=== PATIENT | female | born 1990 | race Caucasian/White ===

== ENCOUNTER 2016-09-19 10:57 | Emergency (ER) | payer SELFPAY ==
[2016-09-19 11:05] VITALS: BP 130/85; BMI 24.0
--- NOTE | 2016-09-19 12:43 | DR.GENAD ---
HPI - PCP Primary Care Physician: NFD - Complaint/Symptoms Chief Complaint Doctors Comments: History as stated. Admits to pain with extension of right upper extremity (right) Chief Complaint:: Hurt collar bone. Was taking out trash and slung bag over her shoulder and she heard a pop - Source History Provided: Patient - Mode of Arrival Mode of Arrival: Ambulatory - Timing Onset of Chief Complaint: 09/19/16 PMH - PMH Past Medical History: No Past Medical History: Hypertension Past Surgical History: No - Family History History of Family Medical Conditions: Yes Family Medical History: Diabetes Mellitus, Hypertension - Social History Does patient currently use any type of tobacco product: Yes Have you used tobacco products in the last 12 months: Yes Type of Tobacco Use: Cigarettes How many years tobacco product used: 10 Does any household member use tobacco: Yes Alcohol Use: None Do you use any recreational Drugs:: No Lives With: Significant Other Lives Where: Home - infectious screening In the last 2 months have you had wt loss of >10#?: NO Have you had fever, night sweats or hemotysis?: No Have you traveled outside the country in the last 6 months?: No Isolation: Standard ROS - Review of Systems Eyes: No Symptoms Reported ENTM: No Symptoms Reported Respiratoy: No Symptoms Reported Cardiovascular: No Symptoms Reported Gastrointestinal/Abdominal: No Symptoms Reported Genitourinary: No Symptoms Reported Neurological: No Symptoms Reported Musculoskeletal: No Symptoms Reported Integumentary: No Symptoms Reported Hematologic/Lymphatic: No Symptoms Reported Endocrine: No Symptoms Reported Psychiatric: No Symptoms Reported All Other Systems: Reviewed and Negative PE - Vital Signs Vitals: Temperature 97.4 F Pulse Rate 94 Respiratory Rate 20 Blood Pressure 130/85 O2 Sat by Pulse Oximetry 100 - General Limitations: No Limitations General Appearance: Alert, In No Apparent Distress - Head Head Exam: Normal Inspection, Atraumatic - Eyes Eye exam: Normal Appearance, PERRL, EOMI - ENT ENT Exam: Normal Exam External Ear Exam: Normal External Inspection TM/Canal Exam: Bilateral Normal Nose Exam: Normal Nose Exam Mouth Exam: Normal Inspection Throat Exam: Normal Inspection - Neck Neck Exam: Normal Inspection - Chest Chest Inspection: Normal Inspection - Respiratory Respiratory Exam: Normal Lung Sounds Bilat Respiratory Exam: Bilateral Clear to Auscultation - Cardiovascular Cardiovascular Exam: Regular Rate, Normal Rhythm - Abdominal Exam Abdominal Exam: Normal Inspection Abdominal Tenderness: negative: RUQ, RLQ, LUQ, LLQ, Epigastrium, Suprapubic, Diffuse, Mild, Moderate, Severe, Other - Extremities Extremities Exam: Normal Inspection, Tenderness - Back Back Exam: Normal Inspection - Neurologic Neurological Exam: Alert, Oriented X3, CN II-XII Intact - Skin Skin Exam: Warm, Dry, Intact Course - Reevaluation 1st: Improved ( 3) ROR - XRAY XRAY Interpreted by: Radiologist (Shoulder: negative) - Diagnosis Discharge Problem: Sprain of shoulder, right Qualifiers: Encounter type: initial encounter Shoulder sprain type: unspecified sprain Qualified Code(s): S43.401A - Unspecified sprain of right shoulder joint, initial encounter - Discharge Plan Condition: Stable - Follow ups/Referrals Follow ups/Referrals: NFD,None [Primary Care Provider] - 3 days - Instructions
[2016-09-19] MEDS ORDERED: TORADOL 30 MG VIAL ONE (12:47)
[2016-09-19] MEDS: TORADOL 30 MG VIAL IM ONE (12:51)
--- NOTE | 2016-09-19 14:00 | RAD ---
HISTORY: Pain. Patient hurt collarbone. Patient was taking out trash slung bag over her shoulder and she heard a pop. Study: Three-view right shoulder Comparison: No priors Findings: The appearance of the clavicle and AC joint are unremarkable. The glenohumeral articulation is norm al in its appearance. No acute cortical disruption or dislocation can be identified. The visualize d portions of the scapula are unremarkable. In addition, the visualized portions of the left hemith orax appear normal. IMPRESSION: 1. Negative exam. Reported By:
== END 2016-09-19 14:15 | disposition home or self-care (01) ==
LOC: ER 11:08
DX: S43.401A Unspecified sprain of right shoulder joint, initial encounter (principal); Y33.XXXA Other specified events, undetermined intent, initial encounter
CPT/HCPCS: 73030; 80305; 96372; 99282; J1885

== ENCOUNTER 2017-02-09 23:58 | Emergency (ER) | payer OTHER ==
[2017-02-10 00:11] VITALS: BMI 28.3
[2017-02-10 00:44] LABS: APPEARANCE,URINE CLOUDY (CLEAR); COLOR,URINE PALE YELLOW (YELLOW)
[2017-02-10 00:45] LABS: BLOOD/HEMOGLOBIN,URINE 3+ (NEGATIVE); GLUCOSE, URINE NEGATIVE (NEGATIVE); KETONES,URINE NEGATIVE (NEGATIVE); NITRITES,URINE NEGATIVE (NEGATIVE); PROTEIN,URINE TRACE (NEGATIVE)
[2017-02-10 00:46] LABS: BACTERIA,URINE TRACE /HPF (NEGATIVE); BILIRUBIN,URINE NEGATIVE (NEGATIVE); LEUKOCYTE ESTERASE ,URINE NEGATIVE (NEGATIVE); SQUAMOUS EPITHELIAL CELL,UR FEW /HPF (NEGATIVE); UROBILINOGEN,URINE NORMAL (NORMAL)
[2017-02-10 00:48] LABS: BASOPHILS # (AUTO) 0.1 X10^3/uL (0.0-0.1); BASOPHILS % (AUTO) 0.6 % (0.2-1.0); EOSINOPHILS # (AUTO) 0.2 x10^3/uL (0.0-0.2); EOSINOPHILS % (AUTO) 1.4 % (0.9-2.9); HEMATOCRIT 34.6 % (36.0-47.0); LYMPHOCYTES # (AUTO) 2.9 X10^3/uL (1.3-2.9); LYMPHOCYTES % (AUTO) 26.2 % (21.0-51.0); MEAN CORPUSCULAR HEMOGLOBIN 31.1 pg (27.0-34.0); MEAN CORPUSCULAR HGB CONC 34.7 g/dL (33.0-35.0); MEAN CORPUSCULAR VOLUME 89.6 fL (80.0-100.0); MEAN PLATELET VOLUME 8.4 fL (7.4-11.0); MONOCYTES # (AUTO) 0.6 x10^3/uL (0.3-0.8); MONOCYTES % (AUTO) 5.5 % (0.0-13.0); NEUTROPHILS # (AUTO) 7.3 x10^3/uL (2.2-4.8); NEUTROPHILS % (AUTO) 66.3 % (42.0-75.0); PLATELET COUNT 279 X10^3/uL (150.0-450.0); RED BLOOD COUNT 3.86 X10^6/uL (3.5-5.4); RED CELL DISTRIBUTION WIDTH 12.4 % (11.6-16.5); WHITE BLOOD COUNT 10.9 X10^3/uL (3.6-10.0)
--- NOTE | 2017-02-10 01:29 | DR.GENAD ---
HPI - PCP Primary Care Physician: DARRELL - Complaint/Symptoms Chief Complaint Doctors Comments: Patient presents with complaint of vaginal bleeding and stomach pain she reports a history of being four months . Her LMP is around the middle of October. Chief Complaint:: VAGINAL BLEEDING - Source History Provided: Patient - Mode of Arrival Mode of Arrival: Ambulatory - Timing Onset of Chief Complaint: 02/10/17 PMH - PMH Past Medical History: Yes Past Medical History: Hypertension Past Surgical History: No - Family History History of Family Medical Conditions: Yes Family Medical History: Diabetes Mellitus, Hypertension - Social History Does patient currently use any type of tobacco product: Yes Have you used tobacco products in the last 12 months: Yes Type of Tobacco Use: Cigarettes Does any household member use tobacco: Yes Alcohol Use: None Do you use any recreational Drugs:: No Lives With: Family Lives Where: Home - infectious screening In the last 2 months have you had wt loss of >10#?: NO Have you had fever, night sweats or hemotysis?: No Have you traveled outside the country in the last 6 months?: No Isolation: Standard ROS - Review of Systems Constitutional: See HPI Eyes: No Symptoms Reported ENTM: No Symptoms Reported Respiratoy: No Symptoms Reported Cardiovascular: No Symptoms Reported Gastrointestinal/Abdominal: No Symptoms Reported Genitourinary: No Symptoms Reported Neurological: No Symptoms Reported Musculoskeletal: No Symptoms Reported Integumentary: No Symptoms Reported Hematologic/Lymphatic: No Symptoms Reported Endocrine: No Symptoms Reported Psychiatric: No Symptoms Reported All Other Systems: Reviewed and Negative PE - Vital Signs Vitals: Temperature 98.3 F Pulse Rate 116 Respiratory Rate 17 Blood Pressure 129/77 O2 Sat by Pulse Oximetry 99 - General General Appearance: Alert, In No Apparent Distress - Head Head Exam: Normal Inspection, Atraumatic - Eyes Eye exam: Normal Appearance, PERRL, EOMI - ENT ENT Exam: Normal Exam External Ear Exam: Normal External Inspection TM/Canal Exam: Bilateral Normal Nose Exam: Normal Nose Exam Mouth Exam: Normal Inspection Throat Exam: Normal Inspection - Neck Neck Exam: Normal Inspection, Full ROM - Chest Chest Inspection: Normal Inspection - Respiratory Respiratory Exam: Normal Lung Sounds Bilat Respiratory Exam: Bilateral Clear to Auscultation - Cardiovascular Cardiovascular Exam: Regular Rate, Normal Rhythm - Abdominal Exam Abdominal Exam: Normal Inspection Abdominal Tenderness: negative: RUQ, RLQ, LUQ, LLQ, Epigastrium, Suprapubic, Diffuse, Mild, Moderate, Severe, Other - Extremities Extremities Exam: Normal Inspection, Full ROM - Back Back Exam: Normal Inspection, Full ROM - Neurologic Neurological Exam: Alert, Oriented X3, CN II-XII Intact - Psychiatric Psychiatric Exam: Normal Affect - Skin Skin Exam: Warm, Dry, Intact ROR - Labs Reviewed Result Diagrams: 02/10/17 00:31 02/10/17 00:31 Laboratory: WBC 10.9 X10^3/uL (3.6-10.0) H 02/10/17 00:31 RBC 3.86 X10^6/uL (3.5-5.4) 02/10/17 00:31 Hgb 12.0 g/dL (12.0-16.0) 02/10/17 00:31 Hct 34.6 % (36.0-47.0) L 02/10/17 00:31 MCV 89.6 fL (80.0-100.0) 02/10/17 00: MCH 31.1 pg (27.0-34.0) 02/10/17 00: MCHC 34.7 g/dL (33.0-35.0) 02/10/17 00:31 RDW 12.4 % (11.6-16.5) 02/10/17 00:31 Plt Count 279 X10^3/uL (150.0-450.0) 02/10/17 00:31 MPV 8.4 fL (7.4-11.0) 02/10/17 00:31 Neut % 66.3 % (42.0-75.0) 02/10/17 00: Lymph % 26.2 % (21.0-51.0) 02/10/17 00:31 [place] % 5.5 % (0.0-13.0) 02/10/17 00:31 Eos % 1.4 % (0.9-2.9) 02/10/17 00:31 Baso % 0.6 % (0.2-1.0) 02/10/17 00:31 Neut # 7.3 x10^3/uL (2.2-4.8) H 02/10/17 00:31 Lymph # 2.9 X10^3/uL (1.3-2.9) 02/10/17 00:31 [place] # 0.6 x10^3/uL (0.3-0.8) 02/10/17 00:31 Eos # 0.2 x10^3/uL (0.0-0.2) 02/10/17 00:31 Baso # 0.1 X10^3/uL (0.0-0.1) 02/10/17 00:31 Absolute Nucleated RBC 0.1 /100WBC 02/10/17 00:31 Sodium 139 mmol/L (136-145) 02/10/17 00:31 Corrected Sodium TNP 02/10/17 00:31 Potassium 3.5 mmol/L (3.5-5.1) 02/10/17 00:31 Chloride 104 mmol/L (98-107) 02/10/17 00:31 Carbon Dioxide 26.1 mmol/L (21-32) 02/10/17 00:31 BUN 9 mg/dL (7-18) 02/10/17 00: Creatinine 0.60 mg/dL (0.55-1.02) 02/10/17 00:31 Est GFR (MDRD) Af Amer > 60 (>60) 02/10/17 00:31 Est GFR (MDRD) Non-Af > 60 (>60) 02/10/17 00:31 Glucose 94 mg/dL (65-99) 02/10/17 00:31 Calcium 8.3 mg/dL (8.5-10.1) L 02/10/17 00: HCG, Quant 74103 mIU/mL (0-6) H 02/10/17 00:31 Specimen Type Clean catch urine 02/10/17 00:15 Urine Color Pale yellow (YELLOW) 02/10/17 00:15 Urine Appearance Cloudy (CLEAR) 02/10/17 00:15 Urine pH 6.0 (5.0 - 8.0) 02/10/17 00:15 Ur Specific [place] 1.015 (1.000-1.030) 02/10/17 00: Urine Protein Trace (NEGATIVE) 02/10/17 00: Urine Glucose (UA) Negative (NEGATIVE) 02/10/17 00: Urine Ketones Negative (NEGATIVE) 02/10/17 00: Urine Occult Blood 3+ (NEGATIVE) 02/10/17 00:15 Urine Nitrite Negative (NEGATIVE) 02/10/17 00:15 Urine Bilirubin Negative (NEGATIVE) 02/10/17 00:15 Urine Urobilinogen Normal (NORMAL) 02/10/17 00:15 Ur Leukocyte Esterase Negative (NEGATIVE) 02/10/17 00:15 Urine RBC 2-6 /HPF (NEGATIVE) 02/10/17 00:15 Urine WBC 0-3 /HPF (NEGATIVE) 02/10/17 00:15 Ur Squamous Epith Cells Few /HPF (NEGATIVE) 02/10/17 00:15 Urine Bacteria Trace /HPF (NEGATIVE) 02/10/17 00:15 Ur Culture Indicated? No/not indicated 02/10/17 00:15 - XRAY XRAY Interpreted by: Radiologist (OB US:A viable single intrauterine is identified with heart tones of 139 beats per minute. [place] rump length is 9.51 cm. A cephalic presentation is observed with an anterior and fundal placenta. Fluid volume is grossly normal although JESSIKA was not obtained. Evaluation of the anatomy including the stomach, urinary bladder and four chamber heart is unremarkable..Impression: A viable single intrauterine with an average ultrasound age of 15 weeks, 5 days correspond to an estimated date of delivery of 07/30/2017 which is discrepant with the patient's reported LMP of . No anatomical abnormalities can be identified.) - Diagnosis Discharge Problem: 15 weeks 5 days Intrauterine normal Qualifiers: Trimester: first trimester Qualified Code(s): Z34.91 - Encounter for supervision of normal , unspecified, first trimester - Discharge Plan Condition: Stable - Follow ups/Referrals Follow ups/Referrals: Sin Dover [Primary Care Provider] - 3 days - Instructions
[2017-02-10 01:44] LABS: BLOOD UREA NITROGEN 9 mg/dL (7-18); CALCIUM 8.3 mg/dL (8.5-10.1); CARBON DIOXIDE 26.1 mmol/L (21-32); CHLORIDE 104 mmol/L (98-107); SODIUM 139 mmol/L (136-145); eGFR BLACK RACES > 60 (>60); eGFR NON BLACK RACES > 60 (>60)
--- NOTE | 2017-02-10 03:16 | US ---
HISTORY: patient, abdominal pain, vaginal spotting. No care. Reported LMP of 2016. Study: OB ultrasound greater than 14 weeks Comparison: None Technique: Multiple grayscale and color flow Doppler images of the pelvis were obtained with focused evaluation of the fetus. Findings: A viable single intrauterine is identified with heart tones of 139 beats per minute. [place]-rump length is 9.51 cm. A cephalic presentation is observed with an anterior and fundal placent a. Fluid volume is grossly normal, although JESSIKA was not obtained. Evaluation of the anatomy inc luding the stomach, urinary bladder, and four-chamber heart is unremarkable. Value Estimated Gestational Age BPD 3.25 cm 16 weeks, 1 day HC 11.3 cm 15 weeks, 3 days AC 9.93 cm 16 weeks, 0 days FL 1.91 cm 15 weeks, 5 days IMPRESSION: A viable single intrauterine with an average ultrasound age of 15 weeks, 5 days correspond to an estimated date of delivery of 07/30/2017, which is discrepant with the patient's reported LMP o f 06/20/2016. No anatomical abnormalities can be identified. Reported By:
[2017-02-10 03:52] VITALS: BP 113/78
== END 2017-02-10 03:50 | disposition home or self-care (01) ==
LOC: ER 23:58
DX: O20.8 Other hemorrhage in early pregnancy (principal); Z3A.15 15 weeks gestation of pregnancy; Z34.91 Encounter for supervision of normal pregnancy, unspecified, first trimester
CPT/HCPCS: 36415; 76815; 80048; 81001; 84702; 85025; 99282; 99284

== ENCOUNTER 2017-02-10 20:28 | Emergency (ER) | payer OTHER ==
[2017-02-10 20:34] VITALS: BP 122/59; BMI 28.3
[2017-02-10] MEDS ORDERED: NS 1000 ML 1,000 ML IV ONE (21:13)
--- NOTE | 2017-02-10 21:14 | DR.GENAD ---
HPI - PCP Primary Care Physician: malini - Complaint/Symptoms Chief Complaint Doctors Comments: A 26 female presenting with compalain of right flank pain coming across her right pelvic area. She denies dysuria, frequency or urgency. I understand that she was here last night with vaginal spotting. Her OB U/S was read as showing a viable IUP at about 15 weeks. She was to follow with her collections curator today but states she was asleep and by the time she awakened, it was too late to make that call. She is still spotting she states. Chief Complaint:: came last night and had ultra sound and tonight she is still spotting and bleeding has not called her ob doctor. 15 week ob - Nurses notes reviewed Nurses Notes Review: Yes - Source History Provided: Patient - Mode of Arrival Mode of Arrival: Ambulatory - Timing Onset of Chief Complaint: 02/09/17 PMH - PMH Past Medical History: Yes Past Medical History: Hypertension Past Surgical History: No - Family History History of Family Medical Conditions: Yes Family Medical History: Diabetes Mellitus, Hypertension - Social History Does patient currently use any type of tobacco product: Yes Have you used tobacco products in the last 12 months: Yes Type of Tobacco Use: Cigarettes How many years tobacco product used: 8 Does any household member use tobacco: Yes Alcohol Use: None Do you use any recreational Drugs:: No Lives With: Family Lives Where: Home - infectious screening In the last 2 months have you had wt loss of >10#?: NO Have you had fever, night sweats or hemotysis?: No Have you traveled outside the country in the last 6 months?: No Isolation: Standard ROS - Review of Systems Constitutional: No Symptoms Reported Eyes: No Symptoms Reported ENTM: No Symptoms Reported Respiratoy: No Symptoms Reported Cardiovascular: No Symptoms Reported Gastrointestinal/Abdominal: Other (right flank pain) Genitourinary: Other (vaginal spotting) Neurological: No Symptoms Reported Musculoskeletal: No Symptoms Reported Integumentary: No Symptoms Reported Hematologic/Lymphatic: No Symptoms Reported Endocrine: No Symptoms Reported Psychiatric: No Symptoms Reported All Other Systems: Reviewed and Negative PE - Vital Signs Vitals: Temperature 98.0 F Pulse Rate 109 Respiratory Rate 18 Blood Pressure [Left Arm] 113/78 Blood Pressure 122/59 O2 Sat by Pulse Oximetry 99 - General Limitations: No Limitations General Appearance: Alert, In No Apparent Distress - Head Head Exam: Normal Inspection - Eyes Eye exam: Normal Appearance - ENT ENT Exam: Normal Exam - Neck Neck Exam: Normal Inspection - Chest Chest Inspection: Normal Inspection - Respiratory Respiratory Exam: Normal Lung Sounds Bilat Respiratory Exam: Bilateral Clear to Auscultation - Cardiovascular Cardiovascular Exam: Regular Rate, Normal Rhythm - Extremities Extremities Exam: Normal Inspection - Back Back Exam: Normal Inspection - Neurologic Neurological Exam: Alert, Oriented X3 - Psychiatric Psychiatric Exam: Normal Affect - Skin Skin Exam: Warm, Dry, Intact, Normal Color Course - Education/Counseling Education/Counseling: Patient, Family, Counseling Educated On: Treatment, Diagnosis, Prognosis, Needs for Follow Up (I had ordered some labs. and IVF for her pending a female nursing staff as a economic development manager for her pelvic exam. She was later asking the nursing about how long all this would take and that she wants to leave. She then signed out AMA.) - Diagnosis Discharge Problem: Vaginal bleeding in patient at less than 20 weeks gestation - Discharge Plan Disposition: AGAINST MEDICAL ADVICE Condition: Stable - Follow ups/Referrals Follow ups/Referrals: Sin Dover [Primary Care Provider] - 3 days - Instructions
== END 2017-02-10 21:25 | disposition left against medical advice (07) ==
LOC: ER 20:40
DX: O20.8 Other hemorrhage in early pregnancy (principal)
CPT/HCPCS: 99282; 99284

== ENCOUNTER 2017-04-22 08:28 | Emergency (ER) | payer OTHER ==
[2017-04-22 08:35] VITALS: BP 129/67; BMI 27.8
--- NOTE | 2017-04-22 09:04 | DR.TOOTHHP ---
HPI - Time Seen Time seen: 08:55 - Primary Care Physician Primary Care Physician: DR. RAMÍREZ - Complaints Chief Complaint Doctors Comments: 3 days of left lower molar tooth ache. There is no fever. Chief Complaint:: PT C/O TOOTHACHE TO HER LOWER LEFT TOOTH THAT IS RADIATING TO HER THROAT, AND EAR.. Self Treatment fo Chief Complaint: ORAGEL. - Reviewed Nurses Notes Reviewed: Yes - Source History Provided: Patient - Mode of Arrival Mode of Arrival: Ambulatory - Timing Onset of Chief Complaint: 04/20/17 - Location Location:: Left, Lower, Tooth - Context Onset:: Spontaneous - Modifying Factors Worsens:: Cold, Chewing Improves:: Analgesics not used - Associated Signs and Symptoms Associated signs and symptoms: None PMH - PMH Past Medical History: No Past Medical History: Hypertension Past Surgical History: No - Family History History of Family Medical Conditions: No Family Medical History: Diabetes Mellitus, Hypertension - Social History Does patient currently use any type of tobacco product: Yes Have you used tobacco products in the last 12 months: Yes Type of Tobacco Use: Cigarettes How many years tobacco product used: 10 Does any household member use tobacco: No Alcohol Use: None Do you use any recreational Drugs:: No Lives With: Family Lives Where: Home - infectious screening In the last 2 months have you had wt loss of >10#?: NO Have you had fever, night sweats or hemotysis?: No Have you traveled outside the country in the last 6 months?: No Isolation: Standard ROS - Review of Systems Constitutional: No Symptoms Reported Eyes: No Symptoms Reported ENTM: No Symptoms Reported Respiratoy: No Symptoms Reported Cardiovascular: No Symptoms Reported Gastrointestinal/Abdominal: No Symptoms Reported Genitourinary: No Symptoms Reported Neurological: No Symptoms Reported Musculoskeletal: No Symptoms Reported Integumentary: No Symptoms Reported Hematologic/Lymphatic: No Symptoms Reported Endocrine: No Symptoms Reported Psychiatric: No Symptoms Reported PE - Vital Signs Vitals: Temperature 97.0 F Pulse Rate 100 Respiratory Rate 18 Blood Pressure [Left Arm] 113/78 Blood Pressure 129/67 O2 Sat by Pulse Oximetry 100 - General Limitations: No Limitations General Appearance: Alert, In No Apparent Distress - Head Head Exam: Normal Inspection - Eyes Eye exam: Normal Appearance - ENT ENT Exam: Normal Exam External Ear Exam: Normal External Inspection TM/Canal Exam: Bilateral Normal Nose Exam: Normal Nose Exam Mouth Exam: Normal Inspection Teeth Exam: Dental Caries, Fractured Tooth # Throat Exam: Normal Inspection - Neck Neck Exam: Normal Inspection - Chest Chest Inspection: Normal Inspection - Respiratory Respiratory Exam: Normal Lung Sounds Bilat - Cardiovascular Cardiovascular Exam: Regular Rate, Normal Rhythm, +S1, +S2 - Abdominal Exam Abdominal Exam: Normal Inspection, Normal Bowel Sounds, Soft - Extremities Extremities Exam: Normal Inspection - Back Back Exam: Normal Inspection - Neurologic Neurological Exam: Alert, Oriented X3, CN II-XII Intact - Psychiatric Psychiatric Exam: Normal Affect, Normal Mood - Diagnosis Discharge Problem: Tooth caries - Discharge Plan Disposition: HOME, SELF-CARE Condition: Stable - Follow ups/Referrals Follow ups/Referrals: NFD,None [Primary Care Provider] - 3 days - Instructions
[2017-04-22] MEDS ORDERED: TYLENOL #3 TAB (W/CODEINE) PO ONE ×2 (09:05→09:08)
== END 2017-04-22 09:21 | disposition home or self-care (01) ==
LOC: ER 08:37
DX: K02.9 Dental caries, unspecified (principal)
CPT/HCPCS: 99281; 99282